=== PATIENT | female | born 1970 | race Caucasian/White ===

== ENCOUNTER → 2024-04-28 09:17 | Outpatient (REF) | payer MEDICARE, SELFPAY | LOC: HWRAD 09:17 | PROVIDERS: ATTENDING PHYSICIAN Internal Medicine Geriatric Medicine | DX: J18.9 Pneumonia, unspecified organism (principal) | CPT/HCPCS: 71046 ==

== ENCOUNTER → 2024-07-05 10:50 | Outpatient (REF) | payer MEDICARE, SELFPAY | LOC: HWRAD 10:50 | PROVIDERS: ATTENDING PHYSICIAN Internal Medicine Geriatric Medicine | DX: Z13.9 Encounter for screening, unspecified (principal) | CPT/HCPCS: 71046 ==

== ENCOUNTER → 2024-07-13 09:16 | Outpatient (REF) | payer MEDICARE, SELFPAY | LOC: HWRAD 09:16 | PROVIDERS: FAMILY PHYSICIAN Internal Medicine Geriatric Medicine | DX: N20.0 Calculus of kidney (principal) | CPT/HCPCS: 74176 ==